=== PATIENT | female | born 1985 ===

== ENCOUNTER 2018-05-31 15:48 | Inpatient (IN) | payer OTHER ==
[~2018-05-31] VITALS: Ht 167.6 cm; Wt 78.5 kg
[2018-05-31] MEDS ORDERED: PRENATAL TABLE1 EACH PO (17:11)
[2018-05-31] MEDS ORDERED: DIALYVITE 800-1 EACH PO (17:12)
== END 2018-06-03 15:07 | disposition home or self-care (01) | DRG 785 ==
LOC: LDR 15:48 → OB/GYN 15:48
PROVIDERS: ADMIT Obstetrics & Gynecology
PROC: 4A1HXCZ Monitoring of Products of Conception, Cardiac Rate, External Approach (ICD-10-PCS; 2018-05-31)
PROC: 0UB70ZZ Excision of Bilateral Fallopian Tubes, Open Approach (ICD-10-PCS; 2018-05-31)
PROC: 10D00Z1 Extraction of Products of Conception, Low, Open Approach (ICD-10-PCS; principal; 2018-05-31 18:00)
DX: O34.211 Maternal care for low transverse scar from previous cesarean delivery (principal); O75.82 Onset (spontaneous) of labor after 37 completed weeks of gestation but before 39 completed weeks gestation, with delivery by (planned) cesarean section; Z3A.37 37 weeks gestation of pregnancy; Z37.0 Single live birth; Z30.2 Encounter for sterilization; O82 Encounter for cesarean delivery without indication